=== PATIENT | male | born 1975 | race Caucasian/White ===

== ENCOUNTER 2016-09-14 20:49 | Emergency (ER) | payer OTHER ==
[~2016-09-14] VITALS: Ht 175.3 cm; Wt 113.0 kg
[~2016-09-14 20:49] MED LIST: ABL5 PO; AMB10 PO; BSP15 PO; CLR10 PO; DLC5; FENO145T26 PO; LEVE1TAB57 PO; LEVE500T26 PO; LISI-725 PO; OMEG10007 PO; PARO1TAB29 PO
[2016-09-14 20:55] VITALS: Ht 175.3 cm; Wt 113.0 kg
[2016-09-14] MEDS ORDERED: IBUPROFEN 600 MG TAB PO STA (21:10)
[2016-09-14] MEDS ORDERED: BUSP15TA70 PO (21:21)
[2016-09-14] MEDS ORDERED: ASPCH81X PO (21:21)
[2016-09-14] MEDS ORDERED: TRL2 PO (21:21)
[2016-09-14] MEDS ORDERED: NVLG SC ×2 (21:21)
[2016-09-14] MEDS ORDERED: ALLO100T PO ×2 (21:21)
[2016-09-14] MEDS ORDERED: INSDGI SC (21:21)
[2016-09-14] MEDS ORDERED: LOSA50TA6 PO (21:21)
[2016-09-14] MEDS ORDERED: BISA-16 PO (21:21)
[2016-09-14] MEDS ORDERED: ATOR-22 PO (21:21)
[2016-09-14] MEDS ORDERED: PARO1TAB29 PO (21:21)
[2016-09-14] MEDS ORDERED: OMEG1CAP84 PO (21:21)
[2016-09-14] MEDS ORDERED: HYDR50CA2 PO (21:21)
[2016-09-14] MEDS ORDERED: METF500T PO (21:21)
[2016-09-14] MEDS ORDERED: LEVE500T13 PO ×2 (21:21)
[2016-09-14] MEDS ORDERED: CHOL100010 PO (21:21)
[2016-09-14] MEDS ORDERED: BUSP30TA2 PO (21:21)
--- NOTE | 2016-09-14 21:38 | DIAGNOSTIC IMAGING REPORT ---
LEFT ANKLE MIN 3 VIEWS ROUTINE CLINICAL HISTORY: Left ankle pain following fall. COMPARISON: None FINDINGS: Irregularity along the syndesmosis with an associated calcific density suggests old syndesmotic injury. There is moderate lateral ankle soft tissue swelling. There is no acute fracture of the left ankle. Talar dome is intact. There is mild posterior and plantar calcaneal spurring. Talonavicular irregularity is chronic. IMPRESSION: 1. No acute fracture or dislocation of the left ankle. 2. 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 Electronically signed by: Gonsalo Allen M.D. 09/14/2016 9:36 PM Dictated Date/Time: 09/14/2016 9:31 PM
--- NOTE | 2016-09-14 21:42 | DIAGNOSTIC IMAGING REPORT ---
LEFT FOOT MIN 3 VIEWS ROUTINE CLINICAL HISTORY: Fall down 5 steps; L ankle and foot pain COMPARISON: None FINDINGS: Tarsometatarsal joints are intact. There is no acute fracture. Osteophytosis at the talonavicular and calcaneocuboid articulations is present. There is mild to moderate plantar calcaneal spurring. There is slight flattening of the left second metatarsal head. This is chronic. IMPRESSION: 1. No acute fracture or dislocation of the left foot. 2. Mild flattening of the left second metatarsal head which is chronic. Electronically signed by: Gonsalo Allen M.D. 09/14/2016 9:40 PM Dictated Date/Time: 09/14/2016 9:38 PM
[2016-09-14 22:32] VITALS: BP 131/88; PULSE 82; TEMP 36.9; O2SAT 97
--- NOTE | 2016-09-16 00:44 | EMERGENCY ROOM VISIT NOTE ---
ED Visit Note First contact with patient: 21:04 CHIEF COMPLAINT: Left ankle pain. HISTORY OF PRESENT ILLNESS: Mr. Mendoza is a 41-year old white male who is brought via wheelchair into the ED accompanied by his caregiver complaining of left ankle and foot pain. He reports approximately 5 hours ago he [place] and [place] 5 steps injuring his ankle and foot. He was able to walk with minimal difficulty. He rates his discomfort 10/10. His pain is nonradiating. His pain worsens with palpation, plantar flexion, inversion, eversion and weightbearing. He has not identified any alleviating factors related to the pain. Patient and caregiver deny any medications for pain prior to arrival at the hospital. He denies any associated symptoms including hip pain, knee pain, lower leg pain, leg/foot weakness/numbness/tingling. No previous significant injuries or surgeries were noted to the left foot. REVIEW OF SYSTEMS: As noted above in History of Present Illness. PAST MEDICAL HISTORY: Diabetes, hypertension, mild mental retardation, gout, status post unspecified brain surgery. CURRENT MEDICATIONS: Keppra, Paxil, Glucophage, Lipitor, BuSpar, Cozaar, Zyloprim, vitamins, aspirin, NovoLog, Lantus, Vistaril, perphenazine. ALLERGIES TO MEDICATIONS: Lorazepam. SOCIAL HISTORY: Patient is currently employed; he feels safe in his home environment; he denies tobacco and alcohol use. PHYSICAL EXAM: Vital Signs: Date Time Temp Pulse Resp B/P Pulse Ox O2 Delivery O2 Flow Rate FiO2 09/14/16 22:32 36.9 82 16 131/88 97 09/14/16 22:31 82 16 131/88 97 Room Air 09/14/16 21:56 82 16 131/88 97 Room Air 09/14/16 20:55 36.9 82 16 135/88 97 Room Air General: 41 year old male in mild distress due to pain, nontoxic-appearing, afebrile and hemodynamically stable. Neurological: Awake, alert, oriented to person place and time. Answering questions appropriately and following commands. Skin: Warm dry and pink. No soft tissue injuries. Left Lower Extremity: No gross mamie deformities. No tenderness in the hip or knee. Tenderness over the lateral malleolus and the ligamentous structures anterior and inferior to the malleolus with mild swelling but no bony deformity , crepitus or ecchymosis. No laxity of the ankle ligamentous structures. There is also tenderness over the fifth metatarsal without bony deformity or crepitus. Full range of motion in flexion, extension and inversion and eversion of the ankle and flexion and extension of all toes. Throughout the foot the skin is pink and warm with brisk capillary refill. Able to distinguish light sensations through all dermatomes of the foot. ED COURSE: Patient is assessed as noted above. Left Ankle X-Rays: Was read by myself and the radiologist showing no acute fractures or dislocations. Left Foot X-Rays: Was read by myself and the radiologist showing no acute fractures or dislocations. Patient is given 600 mg of ibuprofen by mouth for pain and ice for pain, swelling and comfort. Patient is placed in a gel splint and was initially trialed on crutch or's but was unsuccessful and he was subsequently child on a walker and was successful. Patient and caregiver are educated about his condition and instructed on his treatment plan; they verbalizes understanding and agreement with the our plan. CLINICAL IMPRESSION: Left ankle sprain. Left foot pain. DISPOSITION: Patient is discharged to home in stable condition accompanied by his caregiver; prior to departure he was reassessed and subjectively reported he was feeling much better and rated his discomfort 4/10. PLAN: Comfort measures were discussed. Patient and caregiver were encouraged to follow-up with an orthopedic physician if no better in 7 to 10 days. Patient and caregiver were encouraged to return ED as needed for increasing pain or swelling, foot weakness/numbness/tingling or any new/concerning symptoms.
== END 2016-09-14 22:32 | disposition home or self-care (01) ==
LOC: C.EDB 20:51 → C.EDD 22:32
DX: S93.402A Sprain of unspecified ligament of left ankle, initial encounter (principal); M79.672 Pain in left foot; W10.9XXA Fall (on) (from) unspecified stairs and steps, initial encounter; Y92.39 Other specified sports and athletic area as the place of occurrence of the external cause; E11.9 Type 2 diabetes mellitus without complications; I10 Essential (primary) hypertension; F70 Mild intellectual disabilities; M10.9 Gout, unspecified; Z79.4 Long term (current) use of insulin; Z79.899 Other long term (current) drug therapy

== ENCOUNTER → 2017-08-21 | Outpatient (CLI) | payer OTHER ==
[~2017-08-21] MED LIST changes: -ABL5 PO; +ALLO100T PO; -AMB10 PO; +ASPCH81X PO; +ATOR-22 PO; +BISA-16 PO; -BSP15 PO; +BUSP15TA70 PO; +BUSP30TA2 PO; +CHOL100010 PO; -CLR10 PO; -DLC5; -FENO145T26 PO; +HYDR50CA2 PO; +INSDGI SC; -LEVE1TAB57 PO; +LEVE500T13 PO; -LEVE500T26 PO; -LISI-725 PO; +LOSA50TA6 PO; +METF500T PO; +NVLG SC; -OMEG10007 PO; +OMEG1CAP84 PO; +TRL2 PO
[2017-08-21 10:58] LABS: BASO % 0.9 %; BASO ABS # 0.07 K/uL (0-0.2); EOS % 1.3 %; EOS ABS # 0.11 K/uL (0-0.5); HEMATOCRIT 43.5 % (42-52); HEMOGLOBIN 15.8 g/dL (14.0-18.0); IG# 0.02 K/uL (0.00-0.02); LYMPH % 29.8 %; LYMPH ABS # 2.45 K/uL (1.2-3.4); MEAN CELL VOLUME 86.1 fL (80-100); MEAN CORPUSCULAR HEMOGLOBIN 31.3 pg (25-34); MEAN CORPUSCULAR HGB CONC 36.3 g/dl (32-36); MEAN PLATELET VOLUME 11.1 fL (7.4-10.4); MONO % 9.7 %; NEUT % 58.1 %; NEUT ABS # 4.76 K/uL (1.4-6.5); PLATELET COUNT 196 K/uL (130-400); RED CELL DISTRIBUTION WIDTH CV 12.7 % (11.5-14.5); RED CELL DISTRIBUTION WIDTH SD 39.8 fL (36.4-46.3); WHITE BLOOD COUNT 8.21 K/uL (4.8-10.8)
[2017-08-21 11:28] LABS: BLOOD UREA NITROGEN 19 mg/dl (7-18); CALCIUM 8.7 mg/dl (8.5-10.1); CARBON DIOXIDE 24 mmol/L (21-32); CREATININE 0.77 mg/dl (0.60-1.40); GLUCOSE 122 mg/dl (70-99); POTASSIUM 3.9 mmol/L (3.5-5.1); SODIUM 137 mmol/L (136-145)
[2017-08-21 11:29] LABS: ALKALINE PHOSPHATASE 81 U/L (45-117); ALT/SGPT 18 U/L (12-78); AST/SGOT 22 U/L (15-37)
[2017-08-21 11:32] LABS: CHOLESTEROL 86 mg/dl (0-200); LDL CHOLESTEROL CALCULATED 22 mg/dl
== END | disposition home or self-care (01) ==
LOC: C.LABBC 07:41
PROVIDERS: ATTEND Psychiatry & Neurology Neurology
DX: E11.9 Type 2 diabetes mellitus without complications (principal); G40.209 Localization-related (focal) (partial) symptomatic epilepsy and epileptic syndromes with complex partial seizures, not intractable, without status epilepticus

== ENCOUNTER → 2017-11-16 | Outpatient (CLI) | payer OTHER ==
[2017-11-16 12:01] LABS: HEMOGLOBIN A1C 5.9 % (4.5-5.6)
[2017-11-16 13:59] LABS: CREATININE RANDOM URINE 93.4 mg/dl
== END | disposition home or self-care (01) ==
LOC: C.LABBC 08:28
PROVIDERS: ATTEND Physician Assistant
DX: E11.9 Type 2 diabetes mellitus without complications (principal)